=== PATIENT | female | born 1965 | race Caucasian/White ===

== ENCOUNTER → 2019-06-16 | Outpatient (REF) ==
--- NOTE | 2019-06-17 03:06 | REP ---
Clinical: Back pain. Technique: AP, lateral, coned-down views of the lumbosacral spine. Findings: Alignment and lordosis maintained. No acute fracture / compression injury or subluxation. Mild endplate sclerosis, subtle marginal spurring/early osteophyte formation, early hypertrophic facet changes and focal disc space narrowing at L5-S1 noted. Impression: Mild/early moderate multilevel degenerative changes predominantly involving L5 S1. Electronically Signed by Bon Graf MD 06/17/2019 02:57 A
== END ==
LOC: M SMT 14:32
PROVIDERS: ATTEND Internal Medicine
DX: Z00.00 Encounter for general adult medical examination without abnormal findings (principal)